=== PATIENT | female | born 1965 | race Caucasian/White ===

== ENCOUNTER 2017-07-23 08:21 | Emergency (ER) | payer BC ==
[~2017-07-23] VITALS: Ht 160 cm; Wt 81.0 kg
[~2017-07-23 08:21] MED LIST: ALB0.5UD IH; BUDE10.24 IH; ZES10T PO
[2017-07-23 08:24] VITALS: BP 186/111
[2017-07-23 08:45] LABS: BASOPHILS % (AUTO) 0.8 % (0-1); EOSINOPHILS # (AUTO) 0.2 X10'3 (0-0.9); EOSINOPHILS % (AUTO) 3.3 % (0-6); HEMATOCRIT 44.8 % (35.0-45.0); HEMOGLOBIN 15.4 g/dl (12.0-16.0); LYMPHOCYTES # (AUTO) 1.9 X10'3 (1.1-4.8); LYMPHOCYTES % (AUTO) 36.6 % (21-51); MEAN CORPUSCULAR HEMOGLOBIN 29.1 PG (27.0-31.0); MEAN CORPUSCULAR HGB CONC 34.4 % (33.0-36.5); MEAN CORPUSCULAR VOLUME 84.7 FL (78-98); MONOCYTES # (AUTO) 0.5 X10'3 (0-0.9); MONOCYTES % (AUTO) 8.6 % (2-12); NEUTROPHILS # (AUTO) 2.7 X10'3 (1.8-7.7); NEUTROPHILS % (AUTO) 50.7 % (42-75); PLATELET COUNT 237 X10'3 (140-440); RED BLOOD COUNT 5.29 X10'6 (4.20-5.60); RED CELL DISTRIBUTION WIDTH 11.6 % (11.5-14.5); WHITE BLOOD COUNT 5.3 X10'3 (4.5-11.0)
[2017-07-23 09:02] LABS: ANION GAP 8 (8-16); BILIRUBIN,TOTAL 0.4 MG/DL (0.1-1.0); BLOOD UREA NITROGEN 24 MG/DL (7-18); BUN/CREATININE RATIO 30.8 (6.6-38.0); CALCIUM 9.6 MG/DL (8.5-10.1); CHLORIDE 104 MMOL/L (99-107); CREATININE 0.78 MG/DL (0.40-0.90); GLUCOSE 98 MG/DL (70-104); MAGNESIUM 1.8 MG/DL (1.5-2.4); POTASSIUM 4.4 MMOL/L (3.5-5.1); SODIUM 141 MMOL/L (135-145); TOTAL CARBON DIOXIDE 28.6 MMOL/L (24-32); eGFR 77 ML/MIN
[2017-07-23 09:03] LABS: ALANINE AMINOTRANSFERASE 25 U/L (12-78); ALBUMIN 4.1 G/DL (3.4-5.0); ALKALINE PHOSPHATASE 109 IU/L (46-116); ASPARTATE AMINO TRANSFERASE 22 U/L (10-37); TOTAL PROTEIN 8.1 G/DL (6.4-8.2)
== END 2017-07-23 09:24 | disposition home or self-care (01) ==
LOC: ER 08:21
DX: R00.2 Palpitations (principal); I10 Essential (primary) hypertension; E03.9 Hypothyroidism, unspecified; Z90.710 Acquired absence of both cervix and uterus; Z88.8 Allergy status to other drugs, medicaments and biological substances; Z79.899 Other long term (current) drug therapy
CPT/HCPCS: 36415; 71045; 80053; 83735; 84484; 85025; 93005; 99285

== ENCOUNTER 2018-12-22 00:19 | Observation (INO) | payer BC ==
[~2018-12-22] VITALS: Ht 160 cm; Wt 90.5 kg
[2018-12-22] MEDS ORDERED: aspirin 81mg tab.chew PO ONE (01:50)
--- NOTE | 2018-12-22 02:06 | NUR ---
LABS DRAWN CHEST XRAY COMPLETED
[2018-12-22 02:27] LABS: ALANINE AMINOTRANSFERASE 20 U/L (12-78); ALBUMIN 3.9 G/DL (3.4-5.0); ALBUMIN/GLOBULIN RATIO 1.1 (1.1-1.5); ALKALINE PHOSPHATASE 107 IU/L (46-116); ANION GAP 7 (8-16); ASPARTATE AMINO TRANSFERASE 18 U/L (10-37); BILIRUBIN,TOTAL 0.3 MG/DL (0.1-1.0); BLOOD UREA NITROGEN 17 MG/DL (7-18); CHLORIDE 104 MMOL/L (99-107); CREATININE 0.81 MG/DL (0.40-0.90); GLUCOSE 114 MG/DL (70-104); SODIUM 140 MMOL/L (135-145); TOTAL CARBON DIOXIDE 29.2 MMOL/L (24-32); TOTAL PROTEIN 7.4 G/DL (6.4-8.2); eGFR 73 ML/MIN
[2018-12-22 02:33] LABS: MAGNESIUM 1.9 MG/DL (1.5-2.4)
[2018-12-22 02:43] LABS: BASOPHILS # (AUTO) 0.1 X10'3 (0-0.2); EOSINOPHILS # (AUTO) 0.1 X10'3 (0-0.9); EOSINOPHILS % (AUTO) 2.3 % (0-6); HEMOGLOBIN 14.7 g/dl (12.0-16.0); LYMPHOCYTES % (AUTO) 33.9 % (21-51); MEAN CORPUSCULAR HEMOGLOBIN 29.8 PG (27.0-31.0); MEAN CORPUSCULAR HGB CONC 34.2 g/dL (33.0-36.5); MEAN CORPUSCULAR VOLUME 87.1 FL (78-98); MEAN PLATELET VOLUME 7.8 FL (7.4-10.4); MONOCYTES # (AUTO) 0.6 X10'3 (0-0.9); MONOCYTES % (AUTO) 10.2 % (2-12); NEUTROPHILS # (AUTO) 3.1 X10'3 (1.8-7.7); NEUTROPHILS % (AUTO) 52.6 % (42-75); PLATELET COUNT 217 X10'3 (140-440); RED BLOOD COUNT 4.94 X10'6 (4.20-5.60); RED CELL DISTRIBUTION WIDTH 13.1 % (11.5-14.5); WHITE BLOOD COUNT 5.9 X10'3 (4.5-11.0)
[2018-12-22] MEDS ORDERED: magnesium 4gm in 100ml NS 100 ML IV PRN (03:15)
[2018-12-22] MEDS ORDERED: aminophylline 250mg/10ml inj. IV PRN (03:15)
[2018-12-22] MEDS ORDERED: magnesium Cl slow-release 64mg tablet PO PRN (03:15)
[2018-12-22] MEDS ORDERED: potassium CL 10mEq/100ml bag 100 ML IV PRN ×2 (03:15)
[2018-12-22] MEDS ORDERED: nitroGLYCERIN 0.4mg SUBLingual tab SL PRN ×2 (03:15)
[2018-12-22] MEDS ORDERED: metoprolol tartrate 1mg/ml inj IV PRN (03:15)
[2018-12-22] MEDS ORDERED: regadenoson 0.4mg/5ml syringe IV ONE (03:15)
[2018-12-22] MEDS ORDERED: mag hydrox/Alum hydrox/simeth 30ml oral suspension PO PRN (03:15)
[2018-12-22] MEDS ORDERED: magnesium 2GM in 50ml NS 50 ML IV PRN (03:15)
[2018-12-22] MEDS ORDERED: potassium Cl 20 mEq SR tablet PO PRN ×2 (03:15)
[2018-12-22] MEDS ORDERED: morphine 2 MG/ML inj. syringe IV PRN ×2 (03:15)
[2018-12-22] MEDS ORDERED: magnesium hydroxide 30ml (MOM) UD suspension PO PRN (03:15)
[2018-12-22] MEDS ORDERED: ondansetron/PF 4mg/2ml inj IV PRN (03:15)
[2018-12-22] MEDS ORDERED: acetaminophen 325mg tablet PO PRN ×2 (03:15)
--- NOTE | 2018-12-22 03:30 | NUR ---
Received report from MARLENA Flaherty., Addendum: 12/22/18 at 0352 by Judy Conrad RN Received report from MARLENA Flaherty from ED. Patient reported to have woken up with left sided jaw pain, heart burn and nausea. Patient reported to have taken BP and SBP over 200. Patient reported to have taken 8 baby aspirins and came to ED. Troponin done and negative at , less than 0.04., vitals stable, pt on RA sating at 94%, history of HTN, exercise induced asthma. Will await patient arrival to the ACCE unit.
[2018-12-22] MEDS ORDERED: nitroGLYCERIN 1gm ointment UD TP ONE (03:45)
[2018-12-22] MEDS ORDERED: ondansetron/PF 4mg/2ml inj IV ONE (03:45)
--- NOTE | 2018-12-22 03:45 | NUR ---
Patient arrival to the ACCE unit. Patient is alert and oriented x4, she is ambulatory. She is not complaining of pain. Skin check completed by ED nurse Reynold RN and myself. Patient assessed and I will assume care of patient along with orienteerCriss RN.
[2018-12-22] MEDS ORDERED: ASPI81TA52 PO (04:46)
[2018-12-22] MEDS ORDERED: regadenoson 0.4mg/5ml syringe IV PRN (05:25)
--- NOTE | 2018-12-22 06:00 | NUR ---
I have received report from Criss MENDIOLA and Judy MENDIOLA and had the opportunity to ask questions and assume patient care.
[2018-12-22] MEDS ORDERED: hydrALAZINE 20mg/ml inj. IV PRN (06:10)
[2018-12-22] MEDS ORDERED: albuterol 2.5 MG/3 ML nebule NEB PRN (06:15)
--- NOTE | 2018-12-22 06:27 | NUR ---
Orienteer documentation: I have reviewed and agree with all interventions, assessments performed and documented by MARLENA Kahn. Orienteer Medication Administration: For this medication-pass time frame, medication were reviewed, dispensed, administered and documented per hospital policy by MARLENA Kahn.
--- NOTE | 2018-12-22 06:30 | NUR ---
Problems reprioritized. Patient report given, questions answered & plan of care reviewed with Miguel MENDIOLA.
[2018-12-22 07:24] VITALS: BP 117/64
[2018-12-22] MEDS ORDERED: budesonide 0.5mg/2ml UD nebule IH SCH (08:00)
[2018-12-22] MEDS ORDERED: lisinopril 20mg tablet PO SCH (08:00)
[2018-12-22] MEDS ORDERED: aspirin 81mg tablet.DR PO SCH (08:00)
[2018-12-22] MEDS ORDERED: enoxaparin 40mg/0.4ml syringe SQ SCH (08:00)
[2018-12-22] MEDS ORDERED: K and/or MAG REPLACEMENT MC SCH (08:00)
[2018-12-22 08:13] VITALS: BP_SYST 141
--- NOTE | 2018-12-22 09:30 | NUR ---
dischage instruction and education provided to pt, pt verbalized understanding, iv's removed.
--- NOTE | 2018-12-22 10:55 | NUR ---
Orienteer documentation: I have reviewed and agree with all interventions, assessments performed and documented by Carolina MENDIOLA.
== END 2018-12-22 09:52 | disposition home or self-care (01) ==
LOC: ER 00:20 → MED 3N 03:54 → CMPBEDREQ 04:00
PROVIDERS: ADMIT Hospitalist; ATTEND Internal Medicine
DX: R07.89 Other chest pain (principal); I10 Essential (primary) hypertension; E03.9 Hypothyroidism, unspecified; N39.0 Urinary tract infection, site not specified; J44.9 Chronic obstructive pulmonary disease, unspecified; I16.0 Hypertensive urgency; R12 Heartburn; Z90.710 Acquired absence of both cervix and uterus; Z87.440 Personal history of urinary (tract) infections
CPT/HCPCS: 36415; 71045; 80053; 83735; 83880; 84484; 85025; 87081; 93005; 96374; 99284; G0378; J2405

== ENCOUNTER 2021-05-24 22:18 | Inpatient (IN) | payer BC ==
[~2021-05-24] VITALS: Ht 160 cm; Wt 87.7 kg
[~2021-05-24 22:18] MED LIST changes: +ASPI81TA52 PO
--- NOTE | 2021-05-24 23:13 | NUR ---
ASSUMED CARE OF PT. PT IN CT.
--- NOTE | 2021-05-24 23:18 | NUR ---
EKG COMPLETED BY TECH.
--- NOTE | 2021-05-24 23:19 | NUR ---
NET MAKER HERE. PT BACK IN ROOM
[2021-05-24 23:24] LABS: COLOR,URINE YELLOW (Yellow); GLUCOSE, URINE NEGATIVE (Neg); KETONES,URINE NEGATIVE (Neg); LEUKOCYTE ESTERASE ,URINE NEGATIVE (Neg); NITRITES, URINE NEGATIVE (Neg); OCCULT BLOOD,URINE NEGATIVE (Neg); PROTEIN,URINE NEGATIVE (Neg); UROBILINOGEN,URINE 0.2 E.U/dL (0.2-1.0)
[2021-05-24 23:34] LABS: CLARITY,URINE CLEAR (Clear); UA COLLECTION TYPE CLN CATCH MIDSTREAM
[2021-05-24 23:36] LABS: BASOPHILS # (AUTO) 0.1 X10'3 (0-0.2); BASOPHILS % (AUTO) 1.2 % (0-1); EOSINOPHILS # (AUTO) 0.2 X10'3 (0-0.9); HEMATOCRIT 40.4 % (35.0-45.0); HEMOGLOBIN 13.9 g/dl (12.0-16.0); LYMPHOCYTES # (AUTO) 2.4 X10'3 (1.1-4.8); LYMPHOCYTES % (AUTO) 40.7 % (21-51); MEAN CORPUSCULAR HEMOGLOBIN 29.6 PG (27.0-31.0); MEAN CORPUSCULAR HGB CONC 34.3 g/dL (33.0-36.5); MEAN CORPUSCULAR VOLUME 86.1 FL (78-98); MEAN PLATELET VOLUME 8.2 FL (7.4-10.4); MONOCYTES # (AUTO) 0.6 X10'3 (0-0.9); MONOCYTES % (AUTO) 9.9 % (2-12); NEUTROPHILS # (AUTO) 2.7 X10'3 (1.8-7.7); NEUTROPHILS % (AUTO) 45.2 % (42-75); PLATELET COUNT 213 X10'3 (140-440); RED BLOOD COUNT 4.69 X10'6 (4.20-5.60); RED CELL DISTRIBUTION WIDTH 12.7 % (11.5-14.5)
[2021-05-24 23:45] LABS: ALBUMIN 3.8 G/DL (3.4-5.0); ANION GAP 8 (8-16); BLOOD UREA NITROGEN 17 MG/DL (7-18); BUN/CREATININE RATIO 24.3 (6.6-38.0); CALCIUM 8.7 MG/DL (8.5-10.1); CHLORIDE 107 MMOL/L (99-107); GLUCOSE 118 MG/DL (70-104); POTASSIUM 4.1 MMOL/L (3.5-5.1); SODIUM 140 MMOL/L (135-145); TOTAL CARBON DIOXIDE 24.8 MMOL/L (24-32); eGFR 86 ML/MIN
[2021-05-24 23:49] LABS: APTT 26 SECONDS (22-32)
[2021-05-25] MEDS ORDERED: normal saline 1000ml 1,000 ML IV SCH (01:45)
[2021-05-25] MEDS ORDERED: magnesium 2GM in 50ml NS 50 ML IV PRN (01:50)
[2021-05-25] MEDS ORDERED: acetaminophen 325mg tablet PO PRN ×2 (01:50)
[2021-05-25] MEDS ORDERED: potassium Cl 20 mEq SR tablet PO PRN ×2 (01:50)
[2021-05-25] MEDS ORDERED: magnesium 4gm in 100ml NS 100 ML IV PRN (01:50)
[2021-05-25] MEDS ORDERED: magnesium hydroxide 30ml (MOM) UD suspension PO PRN (01:50)
[2021-05-25] MEDS ORDERED: magnesium Cl slow-release 64mg tablet PO PRN (01:50)
[2021-05-25] MEDS ORDERED: potassium CL 10mEq/100ml bag 100 ML IV PRN (01:50)
[2021-05-25] MEDS ORDERED: ondansetron/PF 4mg/2ml inj IV PRN (01:50)
[2021-05-25] MEDS ORDERED: morphine 2 MG/ML inj. syringe IV PRN (01:50)
[2021-05-25] MEDS ORDERED: mag hydrox/Alum hydrox/simeth 30ml oral suspension PO PRN (01:50)
[2021-05-25] MEDS ORDERED: HYDROcodone/acetaminophen 5mg/325mg tablet PO PRN (01:50)
[2021-05-25 02:08] LABS: HEMOGLOBIN A1C 5.6 % (4.5-6.2)
[2021-05-25] MEDS ORDERED: aspirin 81mg, enteric-coated 1 TAB TABLET.DR PO SCH (08:00)
[2021-05-25] MEDS ORDERED: heparin, porcine 5000 units/ml vial SQ SCH (08:00)
[2021-05-25] MEDS ORDERED: K and/or MAG REPLACEMENT MC SCH (08:00)
[2021-05-25] MEDS ORDERED: clopidogrel 75mg tablet PO SCH (08:00)
[2021-05-25] MEDS ORDERED: LORazepam 2 mg/ml vial IV PRN (09:45)
[2021-05-25 12:58] VITALS: BP 159/91
[2021-05-26] MEDS ORDERED: atorvastatin 10mg tablet PO SCH (08:00)
== END 2021-05-25 12:50 | disposition home or self-care (01) | DRG 74 ==
LOC: ER 22:19 → ED HOLD 05-25 01:50 → UNDOADMIN 05-25 01:50 → UNDODISIN 05-25 12:50
PROVIDERS: ADMIT Internal Medicine; ATTEND Family Medicine
DX: G58.9 Mononeuropathy, unspecified (principal); G45.9 Transient cerebral ischemic attack, unspecified; E03.9 Hypothyroidism, unspecified; Z20.822 Contact with and (suspected) exposure to COVID-19; J45.909 Unspecified asthma, uncomplicated; I10 Essential (primary) hypertension; Z90.710 Acquired absence of both cervix and uterus; Z86.73 Personal history of transient ischemic attack (TIA), and cerebral infarction without residual deficits; Z88.8 Allergy status to other drugs, medicaments and biological substances; Z87.440 Personal history of urinary (tract) infections
CPT/HCPCS: 36415; 70450; 71045; 73100; 80048; 81003; 82948; 83036; 85025; 85610; 85730; 87635; 92508; 92616; 93005; 93306; 93880; 99285; C9803; G0378; J1644; J7030

== ENCOUNTER 2023-11-04 08:15 | Emergency (ER) | payer BC ==
[~2023-11-04] VITALS: Ht 160 cm; Wt 85.0 kg
[2023-11-04 08:21] VITALS: TEMP 98.5
[2023-11-04] MEDS: normal saline 1000ml 1,000 ML IV ONE (08:45)
[2023-11-04] MEDS: normal saline 1000ML IV soln IVB ONE (08:46)
[2023-11-04 09:06] LABS: BASOPHILS # (AUTO) 0.1 X10'3 (0-0.2); BASOPHILS % (AUTO) 1.2 % (0-1); EOSINOPHILS # (AUTO) 0.1 X10'3 (0-0.9); EOSINOPHILS % (AUTO) 1.5 % (0-6); HEMATOCRIT 45.4 % (35.0-45.0); HEMOGLOBIN 15.4 g/dl (12.0-16.0); LYMPHOCYTES # (AUTO) 1.8 X10'3 (1.1-4.8); LYMPHOCYTES % (AUTO) 33.2 % (21-51); MEAN CORPUSCULAR HEMOGLOBIN 29.5 PG (27.0-31.0); MEAN CORPUSCULAR HGB CONC 33.8 g/dL (33.0-36.5); MEAN CORPUSCULAR VOLUME 87.3 FL (78-98); MONOCYTES # (AUTO) 0.5 X10'3 (0-0.9); MONOCYTES % (AUTO) 8.5 % (2-12); NEUTROPHILS % (AUTO) 55.6 % (42-75); PLATELET COUNT 250 X10'3 (140-440); RED CELL DISTRIBUTION WIDTH 13.2 % (11.5-14.5); WHITE BLOOD COUNT 5.4 X10'3 (4.5-11.0)
[2023-11-04 09:08] LABS: BILIRUBIN,URINE NEGATIVE (Neg); CLARITY,URINE CLOUDY (Clear); COLOR,URINE YELLOW (Yellow); GLUCOSE, URINE NEGATIVE (Neg); KETONES,URINE NEGATIVE (Neg); LEUKOCYTE ESTERASE ,URINE NEGATIVE (Neg); NITRITES, URINE NEGATIVE (Neg); OCCULT BLOOD,URINE NEGATIVE (Neg); PROTEIN,URINE NEGATIVE (Neg); UROBILINOGEN,URINE 0.2 E.U/dL (0.2-1.0)
[2023-11-04 09:09] LABS: UA COLLECTION TYPE CLN CATCH MIDSTREAM
[2023-11-04 09:13] LABS: STARCH,URINE MANY /HPF (NEGATIVE)
[2023-11-04 09:14] LABS: BACTERIA,URINE 3+ /HPF (Neg); RBC,URINE NONE SEEN /HPF (0-2); SQUAMOUS EPITHELIAL CELL,UR MANY /LPF (FEW); WBC,URINE 0-4 /HPF (0-4)
[2023-11-04 09:19] LABS: ALANINE AMINOTRANSFERASE 24 U/L (12-78); ALBUMIN 3.9 G/DL (3.4-5.0); ALKALINE PHOSPHATASE 106 IU/L (46-116); ANION GAP 9 (8-16); ASPARTATE AMINO TRANSFERASE 24 U/L (10-37); BILIRUBIN,TOTAL 0.5 MG/DL (0.1-1.0); BLOOD UREA NITROGEN 13 MG/DL (7-18); BUN/CREATININE RATIO 15.1 (10.0-20.0); CALCIUM 9.5 MG/DL (8.5-10.1); CHLORIDE 104 MMOL/L (99-107); CREATININE 0.86 MG/DL (0.40-0.90); GLUCOSE 101 MG/DL (70-104); POTASSIUM 4.2 MMOL/L (3.5-5.1); SODIUM 138 MMOL/L (135-145); TOTAL CARBON DIOXIDE 25.5 MMOL/L (24-32); TOTAL PROTEIN 7.9 G/DL (6.4-8.2); eCRCL 58 ML/MIN; eGFR 67 ML/MIN
[2023-11-04 09:26] LABS: CREATINE KINASE 67 U/L (26-192); MAGNESIUM 1.7 MG/DL (1.5-2.4)
[2023-11-04 09:27] LABS: CREATINE KINASE MB < 0.5 ng/ml (0.3-3.6)
[2023-11-04] MEDS: magnesium oxide 400mg tablet PO ONE (10:48)
[2023-11-04 10:57] VITALS: BP 155/82; PULSE 66; RESP 18; O2SAT 98
== END 2023-11-04 11:00 | disposition home or self-care (01) ==
LOC: ER 08:16
DX: E86.0 Dehydration (principal); R25.2 Cramp and spasm; T67.5XXA Heat exhaustion, unspecified, initial encounter; I10 Essential (primary) hypertension; E03.9 Hypothyroidism, unspecified; Z88.8 Allergy status to other drugs, medicaments and biological substances; Z79.82 Long term (current) use of aspirin; Z79.899 Other long term (current) drug therapy; Z90.49 Acquired absence of other specified parts of digestive tract; Z98.890 Other specified postprocedural states; X58.XXXA Exposure to other specified factors, initial encounter; Y93.89 Activity, other specified; Y92.89 Other specified places as the place of occurrence of the external cause; Y99.8 Other external cause status
CPT/HCPCS: 36415; 80053; 81001; 82550; 82553; 83735; 83874; 84484; 85025; 93005; 96360; 96361; 99284; J7030

== ENCOUNTER 2024-09-18 16:32 | Emergency (ER) | payer BC ==
[~2024-09-18] VITALS: Ht 160 cm; Wt 88.6 kg
--- NOTE | 2024-09-18 16:44 | Physician Documentation ---
History of Present Illness ~ General Chief Complaint: Multiple Medical Complaints Stated Complaint: MULTIPLE MED COMPLAINTS Time Seen by MD: 19:28 OK to notify your PCP?: Yes Primary Medical Doctor: BRIAN PIERSON IN [place] Source: patient Mode of Arrival: POV Exam Limitations: no limitations History of Present Illness Initial Comments 59-year-old female with many medical complaints. She has been having cough x2 weeks, diarrhea, nausea, fevers and left flank pain for the past 3 days. Additional note by Marshal Baez, DO: I took over the care of this patient from previous physician. I reviewed any previous notes available, obtain my own history, review of systems and physical examination was performed by myself. This is a 59-year-old female with a prior history of kidney stones eight years ago, history of hypoplastic left-sided kidney, history of hypotension, who comes in for evaluation of multiple complaints. Her chief complaint is left flank pain that began at 3:00 a.m. this morning without any obvious trigger, trauma provocation. Can not describe the pain. The particular palliating or aggravating factors were elicited with the patient. She did not attempt to treat it with the withdrawal motion and Tylenol without much success. She thinks this is a kidney infection. Also reports fever for the last several days with a T-max of 102.1 at home, 101. Debris shortly prior to arrival today. Additionally reports some diarrhea and nausea. Lastly, reports a cough for the last two weeks. Denies use of tobacco, alcohol or illicit substances.. Medication Reconciliation Allergies: Coded Allergies: loratadine (Verified Allergy, Unknown, 09/18/24) Scheduled Albuterol Sulfate Nebs* (Proventil Nebs*), 2.5 MG IH Q4H, (Reported) Aspirin (Aspirin EC), 1 TABLET PO DAILY Budesonide/Formoterol Fumarate (Symbicort 80-4.5 Mcg Inhaler), 10.2 GM IH BID, (Reported) Lisinopril* (Zestril*), 20 MG PO DAILY, (Reported) Past Medical History Past Medical History: Hypertension, UTI, Hypothyroidism Past Surgical History: hysterectomy, tonsillectomy, other Other Past Surgical History: bladder surgery Alcohol Use: None Drug Use: none Lives In: Home Occupation: employed Review of Systems ROS 10 point review of systems was performed and unless noted above in HPI is negative for acute process/complaint. Physical Exam Physical Exam Vital Signs: Temperature: 99.4, Source: Temporal, Heart Rate: 109, Respiratory Rate: 20, BP: 152/120, Pulse Oximetry: 95, Weight: 88.640 Oxygen Flow Rate: 0 Physical Exam GENERAL: Awake, alert, oriented, GCS 15, no apparent distress, non-toxic appearing, answers questions, follows commands appropriately. HEENT: Atraumatic, normocephalic, pupils equal, extraocular muscles intact, sclerae anicteric, mucus membranes moist, oropharynx is clear, no stridor. NECK: supple, full active range of motion, trachea midline, no thyromegaly, no lymphadenopathy, no JVD. CARDIOVASCULAR: regular rate/rhythm, no murmurs/gallops/rubs, Pulses are 2+ in all extremities and symmetric. Capillary refill less than 2 seconds. PULMONARY: Nonlabored, good air movement ,no respiratory distress, speaking in full sentences, clear to auscultation bilaterally, no wheezing, no ronchi, no rales, no accessory muscle use. GASTROINTESTINAL: Soft, non-tender, non-distended, normal active bowel sounds, no organomegaly, no pulsatile masses, no CVA tenderness. NEUROLOGIC: Lucid with normal mental status. Normal facial symmetry. Moves all extremities symmetrically and with purpose. No truncal ataxia. Speech is fluid without evidence of dysarthria or aphasia, no focal deficits appreciated. MUSCULOSKELETAL: There is full range of motion of all extremities. There is no joint pain or joint swelling or joint erythema. There is no muscle pain or tenderness or swelling. EXTREMITIES: warm, well-perfused, no cyanosis, no clubbing, no edema, no acute deformities. Skin: warm, dry, no rashes or lesions, no jaundice, no petechiae orpurpura. No ecchymosis. PSYCHIATRIC: Normal affect, normal insight, normal concentration. Focused exam: [] Progress Results/Orders Results/Orders Orders - MARSHAL BAEZ DO Cta Chest Ct Abd Pelvis (09/18/24 20:00) Completed Orders - MARSHAL BAEZ DO Ketorolac Trometh 30mg/Ml Vial (Toradol (09/18/24 19:20) Cta Chest Ct Abd Pelvis (09/18/24 20:00) Iohexol 350mg/Ml 100ml (Omnipaque 350mg/ (09/18/24 19:46) Medications Received in ER Medications (Trade) Dose Ordered Sig/Devyn Route PRN Reason Start Time Stop Time Status Last Admin Dose Admin (Toradol inj. 30mg/ml) 30 mg ONCE ONCE IM 09/18/24 19:20 09/18/24 19:22 DC 09/18/24 20:32 30 MG Vital Signs 09/18/24 09/18/24 09/18/24 09/18/24 16:35 20:23 20:28 20:32 Temp 99.4 99.1 Pulse 109 90 Resp 20 16 16 16 B/P (MAP) 152/120 126/64 (84) Pulse Ox 95 96 O2 Flow Rate 0 0 09/18/24 21:32 Resp 16 Laboratory Tests Test 09/18/24 17:01 09/18/24 17:51 White Blood Count 6.7 Red Blood Count 5.14 Hemoglobin 15.3 Hematocrit 43.7 Mean Corpuscular Volume 85.0 Mean Corpuscular Hemoglobin 29.7 Mean Corpuscular Hemoglobin Concent 35.0 Red Cell Distribution Width 12.8 Platelet Count 229 Mean Platelet Volume 7.8 Neutrophils (%) (Auto) 70.5 Lymphocytes (%) (Auto) 17.3 L Monocytes (%) (Auto) 9.7 Eosinophils (%) (Auto) 1.6 Basophils (%) (Auto) 0.9 Neutrophils # (Auto) 4.7 Lymphocytes # (Auto) 1.2 Monocytes # (Auto) 0.6 Eosinophils # (Auto) 0.1 Basophils # (Auto) 0.1 CBC Comment Sodium Level 139 Potassium Level 4.1 Chloride Level 102 Carbon Dioxide Level 28.2 Anion Gap 9 Blood Urea Nitrogen 8 Creatinine 0.83 Estimated GFR/1.73 m2 70 BUN/Creatinine Ratio 9.6 L Glucose Level 116 H Calcium Level 9.2 Total Bilirubin 0.9 Aspartate Amino Transf (AST/SGOT) 20 Alanine Aminotransferase (ALT/SGPT) 13 Alkaline Phosphatase 105 Total Protein 8.1 Albumin 3.8 Globulin 4.3 Albumin/Globulin Ratio 0.9 L Chemistry Comments Urine Specimen Description Cln catch midstream Urine Color Yellow Urine Clarity Clear Urine pH 6.0 Urine Specific [place] <=1.005 Urine Protein Negative Urine Glucose (UA) Negative Urine Ketones Negative Urine Occult Blood Negative Urine Nitrite Negative Urine Bilirubin Negative Urine Urobilinogen 0.2 Urine Leukocyte Esterase Negative Urine Culture Indicated Not ind Volume Urine Centrifuged 10 ml Urine Comment Medical Decision Making Findings Facility Status: ED Holds, [facility] process The plan was discussed with the patient, who demonstrates clear understanding of the plan and is in agreement with the plan unless otherwise noted in the chart. All questions have been answered, all concerns were addressed unless otherwise documented. I was available throughout their ED stay for frequent reassessment and questions. Differential Diagnoses (considered and possible or likely): [Differential diagnosis considered includes urinary tract infection, pyelitis, pyelonephritis, kidney stone, acute appendicitis, acute cholecystitis, pancreatitis, gastritis, PUD, diverticulitis, mesenteric ischemia, abdominal aortic aneurysm, bowel obstruction, enteritis, colitis, fecal impaction, volvulus, IBS, inflammatory bowel disease, specific food intolerance, peritonitis, perforated viscous, malignancy, UTI, abscess, and abdominal pain NOS. Pelvic source of pain was also considered including endometritis, dysmenorrhea, ovarian cyst, ovarian torsion, PID, TOA, cervicitis, vaginitis, or uterine fibroid. History, physical exam, and workup exclude many of the more serious causes listed above. ] ??Differential Diagnoses (considered and unlikely, not requiring evaluation currently): [Aortic/great vessels dissection was considered but it is unlikely based on absence of ripping, tearing, migratory chest pain, absence of syncope or focal neurologic deficits, physical examination indicating equal and symmetric pulses.] MDM Data Please see HPI for the following: Independent Historians and external Records Review. Historian: [Patient] Independent Historians: ?[Record review] Medication Management: [Reviewed medication list] Social History and determinants: [Reviewed] Please see the body of the note for the following: Any independent interpretations of ECG, imaging studies. All vitals signs/haemodynamics, ordered tests were independently reviewed and interpreted by myself. Nursing triage complaint and vitals reviewed, additional nursing notes were reviewed as available and I agree unless otherwise noted or documented in contradiction in the chart Vital Signs: Independently reviewed Labs: Independently interpreted Imaging: Independently interpreted Old Medical Records: Independently reviewed, see HPI for relevant summary and information Pulse Oximetry: [95%] interpreted as [normal on room air] by me [Cna Ltc: [Regular Rate, Regular rhythm, no ectopy, NSR] reviewed and interpreted by me] Additionally notably showing: [Initially tachycardic, improved with rest. No evidence of hypotension respiratory distress. CBC normal, no leukocytosis, no neutrophilic predominance. Metabolic panel not able for glucose elevated in the dietary arrange. Urine is dilute in negative for UTI or blood. Chest x-ray was obtained shows a wedge shaped opacity in the left lower lobe. ] Tests considered but not ordered include: [Initially did not consider advanced imaging, however given ongoing pain, it is severity, and the findings on was x- ray we will obtain a CTA and CT abdomen and pelvis] Social Determinants of Health Impact: Patient was evaluated in [facility], [facility] [place] to healthcare due to below par ratio of patient to medical providers. [] Comorbid Conditions Impacting Present Evaluation and Care/Treatment: [] Management Discussions with other Healthcare Providers: [] Treatment and Disposition Medication Management (Given or considered): [Pain management]. See EMR for details Consideration for Hospitalization/Escalation/Deescalation of Care: Admission for observation has been considered, [however the patient is able to tolerate p.o., their symptoms are controlled, they are able to rely on oral medications, and their chief complaint/diagnosis can be managed on outpatient basis.] ?ED Course:?[CT angiography shows consolidation concerning for infective process. CT of the abdomen and pelvis shows no acute disease.] ?Shared decision making:?[Patient is hemodynamically stable for discharge home with follow with their primary care provider. [ ] Specific and cautious return precautions provided and discussed with full understanding. Any incidental findi ngs were also discussed and follow up recommendations given. [] All questions answered. Patient/family were able to verbalize back return precautions. Patient/family agree to plan. Copies of imaging and laboratory studies were provided.] Code status:?FULL Please see the full Electronic Medical Record for full details of nursing documentation, medications list, other records of complete past medical history and conditions, vital signs, laboratory studies, and any radiologic study interpretations by radiologists. Portions of this note were completed using [employer] dictation software and as a result there may exist minor errors in spe lling. I have reviewed elements of past family and social history and agree as included in note. Departure Disposition: HOME / SELF CARE / HOMELESS Impression: Primary Impression: Left flank pain Additional Impression: Pneumonia involving left lung Condition: Improved Additional Instructions: You have a consolidation in the left lung. It appears to be pneumonia. You will receive treatment with the antibiotics. You will need repeat imaging to make sure that this consultation had resolved and that there is no solid mass hiding behind the inflammation. Referrals: NO PRIMARY CARE PROVIDER (PCP) Prescriptions Amox Tr/Potassium Clavulanate (Augmentin 875-125 Tablet) 1 Each Tablet 1 TAB PO Q12H for 10 Days, #20 TAB Prov: MARSHAL BAEZ DO 09/18/24 Education Educated: Patient Educated regarding: diagnosis, treatment, prognosis, need for follow up Additional Comment Medical Screen Exam This patient recieved a medical screening examination. After reviewing the individual's medical complaints with presenting symptoms and performing an appropriate physical examination, it was determined that no emergency medical condition is present. This individual is also not a women having contractions. Signature Scribe Signature: No scribe Attestation: This note accurately reflects clinical decisions, work performed by myself, DO EDITH Vines [facility] Sep 18, 2024 16:44 MARSHAL BAEZ DO Sep 18, 2024 19:31
[2024-09-18 17:27] LABS: BASOPHILS # (AUTO) 0.1 X10'3 (0-0.2); BASOPHILS % (AUTO) 0.9 % (0-1); EOSINOPHILS # (AUTO) 0.1 X10'3 (0-0.9); EOSINOPHILS % (AUTO) 1.6 % (0-6); HEMATOCRIT 43.7 % (35.0-45.0); HEMOGLOBIN 15.3 g/dl (12.0-16.0); LYMPHOCYTES # (AUTO) 1.2 X10'3 (1.1-4.8); LYMPHOCYTES % (AUTO) 17.3 % (21-51); MEAN CORPUSCULAR HEMOGLOBIN 29.7 PG (27.0-31.0); MEAN PLATELET VOLUME 7.8 FL (7.4-10.4); MONOCYTES # (AUTO) 0.6 X10'3 (0-0.9); MONOCYTES % (AUTO) 9.7 % (2-12); NEUTROPHILS # (AUTO) 4.7 X10'3 (1.8-7.7); NEUTROPHILS % (AUTO) 70.5 % (42-75); PLATELET COUNT 229 X10'3 (140-440); RED BLOOD COUNT 5.14 X10'6 (4.20-5.60); RED CELL DISTRIBUTION WIDTH 12.8 % (11.5-14.5); WHITE BLOOD COUNT 6.7 X10'3 (4.5-11.0)
[2024-09-18 17:42] LABS: ALANINE AMINOTRANSFERASE 13 U/L (12-78); ALBUMIN 3.8 G/DL (3.4-5.0); ALBUMIN/GLOBULIN RATIO 0.9 (1.1-1.5); ALKALINE PHOSPHATASE 105 IU/L (46-116); ANION GAP 9 (8-16); ASPARTATE AMINO TRANSFERASE 20 U/L (10-37); BILIRUBIN,TOTAL 0.9 MG/DL (0.1-1.0); BLOOD UREA NITROGEN 8 MG/DL (7-18); BUN/CREATININE RATIO 9.6 (10.0-20.0); CALCIUM 9.2 MG/DL (8.5-10.1); CHLORIDE 102 MMOL/L (99-107); CREATININE 0.83 MG/DL (0.40-0.90); GLUCOSE 116 MG/DL (70-104); POTASSIUM 4.1 MMOL/L (3.5-5.1); SODIUM 139 MMOL/L (135-145); TOTAL CARBON DIOXIDE 28.2 MMOL/L (24-32); TOTAL PROTEIN 8.1 G/DL (6.4-8.2); eCRCL 59 ML/MIN; eGFR 70 ML/MIN
--- NOTE | 2024-09-18 17:43 | RADIOLOGY REPORT ---
EXAM: DI CHEST,SINGLE VIEW TECHNIQUE: Single frontal chest radiograph CLINICAL HISTORY: CP COMPARISON: CHEST,SINGLE VIEW on DOS: 05/24/21 Findings/Impression: Frontal chest radiograph demonstrates no acute osseous or superficial soft tissue abnormalities. The trachea is midline. The cardiac silhouette and mediastinum are within normal limits. Left lower lung field hazy airspace opacity. No pneumothorax or pleural effusions.
[2024-09-18 18:06] LABS: BILIRUBIN,URINE NEGATIVE (Neg); CLARITY,URINE CLEAR (Clear); COLOR,URINE YELLOW (Yellow); GLUCOSE, URINE NEGATIVE (Neg); KETONES,URINE NEGATIVE (Neg); LEUKOCYTE ESTERASE ,URINE NEGATIVE (Neg); NITRITES, URINE NEGATIVE (Neg); OCCULT BLOOD,URINE NEGATIVE (Neg); PROTEIN,URINE NEGATIVE (Neg); UROBILINOGEN,URINE 0.2 E.U/dL (0.2-1.0)
[2024-09-18 18:07] LABS: UA COLLECTION TYPE CLN CATCH MIDSTREAM
[2024-09-18] MEDS ORDERED: iohexol 350MG/ML 100ml bottle IV ONE (19:46)
[2024-09-18] MEDS: ketorolac trometh 30MG/ML vial 30 MG/ML VIAL IM ONE (20:32)
--- NOTE | 2024-09-18 21:14 | RADIOLOGY REPORT ---
CT CTA CHEST CT ABD PELVIS HISTORY: left-sided pain, wedge-shaped opacity on x-ray Comparison Study: None TECHNIQUE: Multidetector CT of the chest, abdomen and pelvis was performed from lower neck to pubic s ymphysis without the use of intravenous contrast. Axial, coronal and sagittal multiplanar reformats w ere performed by the technologist on a separate workstation. 3D MIP images are available for review Radiation Dose : CTDI vol 26.5 mGy, DLP 2154.62 mGy*cm. Findings: Chest: Lungs: Left lower lobe opacity. Pleura: Unremarkable Heart/Great vessels: The visualized heart is unremarkable. No cardiomegaly or pericardial effusion. N o pulmonary embolism, aortic aneurysm, or dissection. Mediastinum: Heterogeneous right thyroid lobe. Prominent bilateral hilar and subcarinal lymph nodes. Soft tissues/Bones: Unremarkable Abdomen: Liver: Fatty infiltration of the liver. Liver measures 19.5 cm in craniocaudal dimension. Gallbladder: Unremarkable. Spleen: Unremarkable Pancreas: Unremarkable Adrenals: Unremarkable Kidneys: Unremarkable GI tract: Unremarkable : Unremarkable. Vasculature: Unremarkable Lymphadenopathy: Absent Peritoneum: No ascites Musculoskeletal: Mild multilevel degenerative changes of the thoracolumbar spine. Soft tissues: Unremarkable Impression: Chest: 1. No pulmonary embolism, aortic aneurysm, or dissection. 2. Left lower lobe opacity may reflect an infectious/inflammatory etiology. 3. Reactive mediastinal and hilar nodes. Abdomen: 1. No acute abdominopelvic abnormalities. 2. Hepatomegaly with hepatic steatosis.
[2024-09-18] MEDS ORDERED: AMOX-117 PO (23:22)
[2024-09-18 23:39] VITALS: BP 124/80; PULSE 66; RESP 16; TEMP 99.1; O2SAT 99
== END 2024-09-18 23:41 | disposition home or self-care (01) ==
LOC: ER 16:33
DX: J18.9 Pneumonia, unspecified organism (principal); R10.9 Unspecified abdominal pain; I10 Essential (primary) hypertension; E03.9 Hypothyroidism, unspecified; Z87.442 Personal history of urinary calculi; Z90.710 Acquired absence of both cervix and uterus; Z88.8 Allergy status to other drugs, medicaments and biological substances; Z79.899 Other long term (current) drug therapy
CPT/HCPCS: 36415; 71045; 71275; 74177; 80053; 81003; 85025; 96372; 99285; J1885; Q9967

== ENCOUNTER 2024-09-23 08:53 | Emergency (ER) | payer BC ==
[~2024-09-23] VITALS: Ht 160 cm; Wt 89.0 kg
[~2024-09-23 08:53] MED LIST changes: +AMOX-117 PO
[2024-09-23 08:59] VITALS: TEMP 98.2
[2024-09-23 09:46] VITALS: PULSE 75; RESP 17; O2SAT 94
[2024-09-23 09:52] LABS: BASOPHILS # (AUTO) 0.1 X10'3 (0-0.2); BASOPHILS % (AUTO) 1.2 % (0-1); EOSINOPHILS # (AUTO) 0.2 X10'3 (0-0.9); EOSINOPHILS % (AUTO) 3.1 % (0-6); HEMATOCRIT 38.6 % (35.0-45.0); HEMOGLOBIN 13.5 g/dl (12.0-16.0); LYMPHOCYTES # (AUTO) 1.6 X10'3 (1.1-4.8); LYMPHOCYTES % (AUTO) 26.6 % (21-51); MEAN CORPUSCULAR HEMOGLOBIN 29.6 PG (27.0-31.0); MEAN CORPUSCULAR HGB CONC 35.1 g/dL (33.0-36.5); MEAN CORPUSCULAR VOLUME 84.3 FL (78-98); MEAN PLATELET VOLUME 7.8 FL (7.4-10.4); MONOCYTES # (AUTO) 0.8 X10'3 (0-0.9); MONOCYTES % (AUTO) 14.4 % (2-12); NEUTROPHILS # (AUTO) 3.2 X10'3 (1.8-7.7); NEUTROPHILS % (AUTO) 54.7 % (42-75); PLATELET COUNT 252 X10'3 (140-440); RED BLOOD COUNT 4.57 X10'6 (4.20-5.60); RED CELL DISTRIBUTION WIDTH 12.7 % (11.5-14.5); WHITE BLOOD COUNT 5.8 X10'3 (4.5-11.0)
[2024-09-23 09:57] LABS: ALANINE AMINOTRANSFERASE 16 U/L (12-78); ALBUMIN 3.3 G/DL (3.4-5.0); ALBUMIN/GLOBULIN RATIO 0.8 (1.1-1.5); ALKALINE PHOSPHATASE 88 IU/L (46-116); ANION GAP 9 (8-16); ASPARTATE AMINO TRANSFERASE 16 U/L (10-37); BILIRUBIN,TOTAL 0.4 MG/DL (0.1-1.0); BLOOD UREA NITROGEN 10 MG/DL (7-18); BUN/CREATININE RATIO 14.7 (10.0-20.0); CALCIUM 8.9 MG/DL (8.5-10.1); CHLORIDE 103 MMOL/L (99-107); CREATININE 0.68 MG/DL (0.40-0.90); GLUCOSE 104 MG/DL (70-104); LIPASE 40 U/L (16-77); POTASSIUM 3.7 MMOL/L (3.5-5.1); SODIUM 140 MMOL/L (135-145); TOTAL CARBON DIOXIDE 27.9 MMOL/L (24-32); TOTAL PROTEIN 7.5 G/DL (6.4-8.2); eCRCL 72 ML/MIN; eGFR 88 ML/MIN
[2024-09-23 10:13] LABS: BILIRUBIN,URINE NEGATIVE (Neg); CLARITY,URINE CLEAR (Clear); COLOR,URINE STRAW (Yellow); GLUCOSE, URINE NEGATIVE (Neg); KETONES,URINE NEGATIVE (Neg); LEUKOCYTE ESTERASE ,URINE NEGATIVE (Neg); NITRITES, URINE NEGATIVE (Neg); OCCULT BLOOD,URINE NEGATIVE (Neg); PROTEIN,URINE NEGATIVE (Neg); UROBILINOGEN,URINE 0.2 E.U/dL (0.2-1.0)
--- NOTE | 2024-09-23 10:15 | Physician Documentation ---
History of Present Illness ~ Chief Complaint: Rectal Bleeding Stated Complaint: ANAL BLEEDING Time Seen by MD: 09:35 Primary Medical Doctor: RBIAN PIERSON IN RED [place]UFF Mode of Arrival: Ambulatory HPI 59-year-old female who presents to the emergency department complaining of intermittent bright red blood per rectum, patient has been on Augmentin for presumed pneumonia, she does have some left lower quadrant pain, notes that she has loose stools which is not uncommon for her. She called her primary care doctor's office and they told her she needed to come to the emergency department immediately for an evaluation today. Patient does not take blood thinners. Medication Reconciliation Allergies: Coded Allergies: loratadine (Verified Allergy, Unknown, 09/18/24) Scheduled Albuterol Sulfate Nebs* (Proventil Nebs*), 2.5 MG IH Q4H, (Reported) Amox Tr/Potassium Clavulanate (Augmentin 875-125 Tablet), 1 TAB PO Q12H Aspirin (Aspirin EC), 1 TABLET PO DAILY Budesonide/Formoterol Fumarate (Symbicort 80-4.5 Mcg Inhaler), 10.2 GM IH BID, (Reported) Lisinopril* (Zestril*), 20 MG PO DAILY, (Reported) Past Medical History Past Medical History: Hypertension, UTI, Hypothyroidism Past Surgical History: hysterectomy, tonsillectomy, other Other Past Surgical History: bladder surgery Alcohol Use: None Drug Use: none Lives In: Home Occupation: employed Review of Systems All Other Systems at this time: Reviewed and Negative Constitutional: Reports: no symptoms reported, see HPI Gastrointestinal: Reports: abdominal pain, hematochezia, rectal bleeding Physical Exam Vital Signs: RN Vital Signs have been reviewed: Yes, Temperature: 98.2, Source: Temporal, Heart Rate: 75, Respiratory Rate: 17, BP: 141/72, Pulse Oximetry: 94, Weight: 89.050 Oxygen Flow Rate: 0 General Appearance: alert, no apparent distress EENT: PERRL/EOMI Neck: normal inspection, full range of motion, supple Respiratory: lungs clear, normal breath sounds, no respiratory distress Chest: no accessory muscle use, chest non-tender Cardiology Exam: normal peripheral pulses, regular rate, rhythm, no edema Gastrointestinal: normal palpation, non-tender, bowels sounds present; No: pulsatile mass Progress Results/Orders Results/Orders Completed Orders - RAFAEL HORVATH DO Urinalysis, Cult If Indicated (09/23/24 09:03) Cbc/Diff (09/23/24 09:03) BMP (09/23/24 09:03) Lipase (09/23/24 09:03) CMP (09/23/24 09:03) Vital Signs 09/23/24 09/23/24 09/23/24 08:59 09:39 09:46 Temp 98.2 Pulse 88 75 Resp 18 17 B/P (MAP) 156/87 141/72 (95) Pulse Ox 95 94 O2 Flow Rate 0 0 Laboratory Tests Test 09/23/24 09:04 09/23/24 09:28 Urine Specimen Description Cln catch midstream Urine Color Straw Urine Clarity Clear Urine pH 6.0 Urine Specific [place] <=1.005 Urine Protein Negative Urine Glucose (UA) Negative Urine Ketones Negative Urine Occult Blood Negative Urine Nitrite Negative Urine Bilirubin Negative Urine Urobilinogen 0.2 Urine Leukocyte Esterase Negative Urine Culture Indicated Not ind Volume Urine Centrifuged 10 ml Urine Comment White Blood Count 5.8 Red Blood Count 4.57 Hemoglobin 13.5 Hematocrit 38.6 Mean Corpuscular Volume 84.3 Mean Corpuscular Hemoglobin 29.6 Mean Corpuscular Hemoglobin Concent 35.1 Red Cell Distribution Width 12.7 Platelet Count 252 Mean Platelet Volume 7.8 Neutrophils (%) (Auto) 54.7 Lymphocytes (%) (Auto) 26.6 Monocytes (%) (Auto) 14.4 H Eosinophils (%) (Auto) 3.1 Basophils (%) (Auto) 1.2 H Neutrophils # (Auto) 3.2 Lymphocytes # (Auto) 1.6 Monocytes # (Auto) 0.8 Eosinophils # (Auto) 0.2 Basophils # (Auto) 0.1 CBC Comment Sodium Level 140 Potassium Level 3.7 Chloride Level 103 Carbon Dioxide Level 27.9 Anion Gap 9 Blood Urea Nitrogen 10 Creatinine 0.68 Estimated GFR/1.73 m2 88 BUN/Creatinine Ratio 14.7 Glucose Level 104 Calcium Level 8.9 Total Bilirubin 0.4 Aspartate Amino Transf (AST/SGOT) 16 Alanine Aminotransferase (ALT/SGPT) 16 Alkaline Phosphatase 88 Total Protein 7.5 Albumin 3.3 L Globulin 4.2 Albumin/Globulin Ratio 0.8 L Lipase 40 Chemistry Comments Re-Evaluation Re-Evaluation : Progress Patient was re-evaluated discussed stable hemoglobin and vital signs, plan at this time is to refer back to her regular doctor she has no acute bleeding at this time states that the bleeding has actually resolved likely she has an internal hemorrhoid that was bleeding, she will avoid NSAIDs and blood thinners and return to the ER for any increased bleeding dizziness or tachycardia. Departure Disposition: HOME / SELF CARE / HOMELESS Impression: Primary Impression: GI bleed Additional Impression: Pneumonia Additional Impression Text You have a lower GI bleed with bright red blood per rectum, I suggest that you follow-up with your doctor to get re-referred back to GI for a colonoscopy, continue with the Augmentin, this would treat both pneumonia and potential diverticulitis, you likely have an internal hemorrhoid however can not rule out any pathology of the colon, colonoscopy would be the procedure of choice to do so. See your regular doctor for a referral to GI as soon as possible. Return to the ER for any worsening bleeding, dizziness, tachycardia or other symptoms, do not take ibuprofen or aspirin or any other blood thinners at home. Condition: Stable Discharge Instructions: Hemorrhoids Referrals: NO PRIMARY CARE PROVIDER (PCP) Education Educated: Patient Educated regarding: diagnosis Signature Scribe Signature: None Attestation: Dictated by myself RAFAEL HORVATH DO Sep 23, 2024 10:15
[2024-09-23 10:23] LABS: UA COLLECTION TYPE CLN CATCH MIDSTREAM
[2024-09-23 11:31] VITALS: BP 145/65
== END 2024-09-23 11:34 | disposition home or self-care (01) ==
LOC: ER 08:55
DX: K92.2 Gastrointestinal hemorrhage, unspecified (principal); J18.9 Pneumonia, unspecified organism; I10 Essential (primary) hypertension; E03.9 Hypothyroidism, unspecified; Z88.8 Allergy status to other drugs, medicaments and biological substances; Z90.710 Acquired absence of both cervix and uterus
CPT/HCPCS: 36415; 80053; 81003; 83690; 85025; 99284